=== PATIENT | female | born 1950 | race Caucasian/White ===

== ENCOUNTER 2024-05-30 14:18 | Outpatient (CLI) | payer MEDICARE, SELFPAY ==
--- NOTE | ~2024-05-30 | MM_ITS ---
EXAMINATION: MM screening shantel BI w renae HISTORY: Screening TECHNIQUE: Craniocaudal and mediolateral oblique 3-D tomosynthesis images were obtained and synthetic 2-D images were generated. CAD analysis was submitted and interpreted. COMPARISON: No prior mammogram is available for comparison at this institution. BREAST PARENCHYMAL COMPOSITION: There are scattered areas of fibroglandular density. FINDINGS: Punctate and bulky calcifications are detected bilaterally, morphologically benign in appea benton. Unremarkable parenchymal pattern without suspicious microcalcifications, architectural distortion, di screte masses or significant asymmetry. IMPRESSION: 1. No mammographic/tomographic evidence of malignancy. BI-RADS Category 0: Incomplete: Needs comparison with prior mammograms. Reviewed, dictated and finalized at location A.
--- OUTSIDE RECORDS SUMMARY | 2024-05-30 14:25 | XMS_ITS | Clinical Summary ---
Author Organization [facility] Address [address] [place] [address] Care Team Providers Care Mail Processor Name Role Phone Unavailable Primary Care Provider Unavailabl e Immunizations Immunization Administration Dates Next Due Covid-19, Mrna, Lnp-s, Pf, 30 Mcg/0.3 Ml Dose (P hiral) 12/31/2020 Social History Tobacco Use Types Packs/Day Years Used Date Smoking Tobacco: Never Assessed Comments Unknown Sex and Gender Information Value Date Recorded Sex Assigned at Not on file Legal Sex Female 12:25 AM CDT Gender Identity Not on file Sexual Orientation Not on file Plan of Treatment Health Maintenance Due Date Last Done Comments DEXA Bone Density 1950 Hepatitis C Virus (HCV) Screening 1950 TdaP Immunization 1950 Colonoscopy 07/31/1996 Colorectal Cancer Screening 07/31/1996 Cologuard 07/31/2001 Immunochemical Fecal Occult Blood 07/31/2001 Mammogram 07/31/2001 Zoster Immunization (1 of 2) 07/31/2001 Influenza Immunization (#1) 11/04/202311/03, 11/18/2018, 11/10/2017, Additional history exists SARS-COV-2 Immunization (2023- season) 2023 12/31/2020, 05/20/2020, 04/27/2020 Respiratory Syncytial Virus (RSV) Immunization (Adult) (1 - 1-dose 75+ series) 07/31/2026 Pneumococcal Immunization (50+ years) Completed 11/17/2019, 11/18/2018 Hepatitis B Immunization Aged Out No longer eligible based on patient's age to complete this topic Meningococcal Immunization (ACWY) Aged Out No longer eligible based on patient's age to complete this topic Rotavirus Immunization Aged Out No lo nger eligible based on patient's age to complete this topic
--- OUTSIDE RECORDS SUMMARY | 2024-05-30 14:25 | XMS_ITS | Clinical Summary ---
Author Organization [facility] [employer] Address [address] [place] [address] [place] [address] Care Team Providers Care Contract Manager Name Role Phone Unavailable Primary Care Provider Unavailabl e Source Comments [facility] [employer],non-owned Affiliates and Associated Physician Practices is amultiple site organization consisting of ambulatory clinics and hospital sitesin [place], [place], [place] and [place]. This disclosure is being madepursuant to the Care Everywhere program and may not contain all information available regarding this patient. Last updated 17.[facility] [employer] Allergies No known active allergies Medications * Be aware that medications may not be up to date on this document. Alwaysverify current medications with the patient. Medication Sig Dispensed Refills Start Date End Date Status pravastatin (PRAVACHOL) 40 MG tablet Take 20 mg by mouth at bedtime Active NIACIN, ANTIHYPERLIPIDEMIC, PO Take 250 mg by mouth once daily Active Multiple Vitamins-Minerals (MULTIVITAMIN ADULT PO) Take 1 tablet by mouth once daily Active oxyCODONE-acetaminoph en (PERCOCET) 5-325 MG tablet Take 2 tablets by mouth every 4 hours as needed for Pain 40 tablet 08/03/2017 Active Immunizations Name Administration Dates Next Due INFLUENZA VACCINE, HIGH-DOSE , QUADR. (FLUZONE HIGH-DOSE QUADRIVALENT; 65Y+), 0.7 ML ([id number]) 11/10/2017 Social History Tobacco Use Types Packs/Day Years Used Date Smoking Tobacco: Never Smokeless Tobacco: Never Alcohol Use Standard Drinks/Week Comments Yes 0 (1 standard drink = 0.6 oz pur e alcohol) socially Sex and Gender Information Value Date Recorded Sex Assigned at Not on file Gender Identity Not on file Sexual Orientation Not on file Last Filed Vital Signs Vital Sign Reading Time Taken Comments Blood Pressure 150/94 08/03/2017 1:50 PM CDT Pulse 78 08/03/2017 1:50 PM CDT Temperature 36.8 C (98.3 F) 08/03/2017 1:05 PM CDT Respiratory Rate 16 08/03/2017 1:50 PM CDT Oxygen Saturation 95% 08/03/2017 1:50 PM CDT Inhaled Oxygen Concentration - - Weight 95.3 kg (210 lb) 08/03/2017 9:33 AM CDT Height 165.1 cm (5' 5 ) 08/03/2017 9:33 AM CDT Body Mass Index 34.95 08/03/2017 9:33 AM CDT Plan of Treatment Health Maintenance Due Date Last Done Comments BONE DENSITY TESTING 1950 COLOGUARD (AGES 45-75) - COL ON CA SCREENING 1950 COLON MONITORING 1950 COLONOSCOPY - COLON CA SCREENING 1950 CT COLONOGRAPHY - COLON CA SCREENING 1950 Colorectal Cancer Screening 1950 FIT - COLON CA SCREENING 1950 FLEX SIG - COLON CA SCREENING 1950 MAMMOGRAM 1950 MEDICARE AWV 12 MONTHS 1950 HEPATITIS C SCREENING 07/27/1969 DTAP/TDAP/TD VACCINES (1 - Tdap) 07/31/1970 PNEUMOCOCCAL VACCINE 50+ (1 of 1 - PCV) 07/31/2001 ZOSTER VACCINE (1 of 2) 07/31/2001 SCREENING FOR DIABETES 11/10/2017 COVID-19 VACCINE (1 - 2023-2 5 season) 2023 INFLUENZA VACCINE (#1) 2023 11/10/2017 DEPRESSION SCREENING 03/05/2024 Respiratory Syncytial Virus (RSV) Vaccine Pt: or over 60 yrs (1 - 1-dose 75+ series) 07/31/2026 HEPATITIS B VACCINE Aged Out No longe r eligible based on patient's age to complete this topic HIB VACCINE Aged Out No longer eligi ble based on patient's age to complete this topic HPV VACCINE Aged Out No longer eligi ble based on patient's age to complete this topic MENINGOCOCCAL (Group B) VACC INE SHARED DECISION-MAKING Aged Out No longer eligibl e based on patient's age to complete this topic MENINGOCOCCAL GROUPS A/C/Y/W VACCINE Aged Out No longer eligible b ased on patient's age to complete this topic
--- OUTSIDE RECORDS SUMMARY | 2024-05-30 14:25 | XMS_ITS | Data Portability ---
Author Organization [facility] Address [address] [place] [address] Assessment Encounter Date Assessment Date Assessment LastModified by Organization Details LastModified Time 08/21/2023 08/21/2023 mammogram may 2023 normal cologuard september 2022 negative pap smear a few years ago and now done eye exam overdue for exam. she will get one this summer. dental exam: UTD always Not available 08/21/2023 13:03:59 02/21/2024 02/21/2024 mammogram may 2023 normal cologuard september 2022 negative pap smear a few years ago and now done eye exam still due. dental exam: UTD always , last month. Not available 02/21/2024 12:54:31 Plan of Treatment Reminders Order Date Submit Date Provider Last Modified By Organization Details Last Modified Time Details Appointments ANY 15 2024 10:00A M JESÚS Painter Not available Not available Not available Lab HbA1c (hemoglob in A1c), blood 2023 024 [facility], [address], [place], [address], 03/12/2024 10:34:08 BMP, serum or plasma 2023 024 [facility], [address], [place], [address], 03/12/2024 10:33:58 hepatic function panel, serum [facility]23 [facility], [address], [place], [address], 03/12/2024 10:34:16 CBC w/ auto diff 2023 024 [facility], [address], [place], [address], 03/12/2024 10:34:33 TSH + free T4, serum 2023 024 [facility], [address], [place], [address], 03/04/2024 10:34:09 lipid panel, serum 2023 024 [facility], [address], [place], [address], 03/12/2024 10:33:47 BMP, serum or plasma 2023 024 [facility], [address], [place], [address], 09/13/2023 15:37:04 hepatic function panel, serum 2023 024 [facility], [address], [place], [address], 09/13/2023 15:37:04 CBC w/ auto diff 2023 024 [facility], [address], [place], [address], 09/13/2023 15:37:03 TSH + free T4, serum 2023 024 [facility], [address], [place], [address], 09/13/2023 15:37:03 vitamin B12 + folate, serum or blood 2023 024 [facility], [address], [place], [address], 09/13/2023 15:37:03 HbA1c (hemoglob in A1c), blood 2023 024 [facility], [address], [place], [address], 09/13/2023 15:37:04 lipid panel, serum 2023 024 [facility], [address], [place], [address], 09/13/2023 15:37:04 Referral None recorded. Procedures None recorded. Surgeries None recorded. Imaging MAMMO, screening , digital, bilateral 2023 [facility], [address] Lissette Sharma, [facility], [place], [address], 03/25/2024 15:29:06 DEXA 2023 024 [facility] Not available 09/10/2023 16:13:27 Medication Orders ciproflox acin 0.3 %-dexamet hasone 0.1 % ear drops,genie pension 2023 024 [id number], [address] [place], [place], [phone], 02/21/2024 12:52:56 amoxicill in 875 mg-potass ium clavulana te 125 mg tablet 2023 024 [id number], [address] [facility], [place], [place], [phone], 02/21/2024 12:52:59 losartan 100 mg tablet 2023 024 [id number], [address] [facility], [place], [place], [phone], 02/21/2024 12:52:58 Patient TargetsNo targets recorded. Patient Instructions Encounter Date Encounter Id Patient Instructions Last Modified By Organization Details Last Modified Time 08/21/2023 [id number] A healthy lifestyle: care instructions Not available 08/21/2023 13:10:06 02/21/2024 [id number] A healthy lifestyle: care instructions Not available 02/21/2024 12:52:51 Reason for Referral None Reported. Results Created Date Observation Date Name Description Value Unit Range Abnormal Flag Note LastModifiedBy Organization Detail LastModifiedTime 08/21/19 24 08/29/2021 DEXA No observ ation record ed. [facility] Not Available 2023 15:20:29 08/21/19 24 04/03/2022 MAMMO , scree lissa, digit al, bilat eral No observ ation record ed. [facility] Not Available 2023 15:20:29 09/10/19 24 09/10/2023 DEXA No observ ation record ed. [facility] [address] [place], [address], 03/04/2024 16:59:08 03/06/19 25 04/03/2022 MAMMO , scree lissa, digit al, bilat eral No observ ation record ed. [facility] Not Available 2024 16:59:38 03/06/19 25 08/29/2021 DEXA No observ ation record ed. [facility] Not Available 2024 17:21:09 Result Notes None recorded. Problems Name Problem SNOMED Code Status Onset Date Resolution Date Notes Provider Name and Address Organization Details Recorded Time Long-term drug therapy Active 2023 JESÚS Painter Attn: Sandi warren,[address] [facility], [place], [address], [facility] 23:58:35 Body mass index 30+ - obesity 945110702 Active 2023 JESÚS Painter Attn: Sandi warren,[address] [facility], [place], [address], [place] [facility] 4 23:58:41 Obesity 505397383 Active 2023 JESÚS Painter Attn: Sanid g,[address] [facility], [place], [address], [place] [facility] 4 23:58:42 Blood glucose outside reference range 498539717 Active 2023 JESÚS Painter Attn: Sandi g,[address] [facility], [place], [address], [place] [facility] 4 23:58:44 Hyperlipidemia 28726978 Active 2023 JESÚS Painter Attn: Sandi g,[address] [facility], [place], [address], [place] [facility] 4 23:59:00 Benign essential hypertension 3605070 Active 2023 JESÚS Painter Attn: Sandi g,[address] [facility], [place], [address], [place] [facility] 4 23:59:03 Prediabetes 583502085 Active 2023 JESÚS Painter Attn: Sandi warren,[address] [facility], [place], [address], [place] [facility] 4 17:01:04 Problem Notes None recorded. Procedures Surgical History Date Name Laterality Status Provider Name and Address Organization Details Recorded Time 6 ligation of bilateral fallopian tubes completed JESÚS Painter Attn: Accounting,[address] [facility], [place], [address], [place] [facility] 02/24/2024 09:06:56 Imaging Results Imaging Date Name Status LastModified by [facility] Details LastModified Time 08/29/2021 DEXA completed [facility] Information no t available 08/21/2023 15:20:29 04/03/2022 MAMMO, screening, digital, bilateral completed [facility] Information not available 08/21/2023 15:20:29 09/10/2023 DEXA completed [facility] [address] [facility], [place], [address], 03/04/2024 16:59:08 04/03/2022 MAMMO, screening, digital, bilateral completed [facility] Information not available 03/06/2024 16:59:38 08/29/2021 DEXA completed [facility] Information no t available 03/06/2024 17:21:09 Procedure Notes None recorded. Medical Equipment None Reported. Allergies No known drug allergies Medications Name Sig Start Date Stop Date Status Note LastModified by Organization Details LastModified Time atorvastatin 20 mg tablet Take 1 tablet every day by oral route for 90 days. active Not Available Not Available No t Available losartan 100 mg tablet Take 1 tablet every day by oral route. active Not Available Not Available No t Available amoxicillin 875 mg-potassium clavulanate 125 mg tablet Take 1 tablet every 12 hours by oral route. active Not Available Not Available No t Available ciprofloxacin 0.3 %-dexamethason e 0.1 % ear drops,suspensi on INSTILL 4 DROPS INTO AFFECTED EAR(S) BY OTIC ROUTE 2 TIMES PER DAY FOR 7 DAYS 2023 active Not Available Not Available Not Avai lable Vitals Date Recorded Body height Body mass index (BMI) Body weight Respiratory rate Oxygen saturation Oxygen saturation in Arterial blood by Pulse oximetry Heart rate Systolic blood pressure Diastolic blood pressure Provider Name and Address Organization Details Last Updated DateTime 4 165.1 cm 34.9 kg/m2 68635.3 2 g 20 /min 96 % 96 % 73 /min 132 mm[Hg] 80 mm[Hg] Cristian Almonte MA [facility] 4 12:57:17 Date Recorded Systolic blood pressure Diastolic blood pressure Provider Name and Address Organization Details Last Updated DateTime 08/21/2023 130 mm[Hg] 78 mm[Hg] JESÚS Painter Attn: Accounting,[address] [place], [address], [place] [facility] 08/21/2023 13:09:54 Date Recorded Body height Body mass index (BMI) Body weight Oxygen saturation Oxygen saturation in Arterial blood by Pulse oximetry Heart rate Systolic blood pressure Diastolic blood pressure Provider Name and Address Organization Details Last Updated DateTime 165.1 cm 35.1 kg/m2 72160.9 9 g 96 % 96 % 73 /min 142 mm[Hg] 80 mm[Hg] Cristian Almonte MA [facility] 12:19:58 Date Recorded Respiratory rate Systolic blood pressure Diastolic blood pressure Provider Name and Address Organization Details Last Updated DateTime 02/21/2024 16 /min 136 mm[Hg] 80 mm[Hg] JESÚS Painter Attn: Accounting, [address] [facility], [place], [address], [facility] 03/04/2024 16:59:22 Social History Question Answer Notes LastModified by Organizat ion Details LastModified Time Tobacco Smoking Status Never Smoker Cristian Almonte MA null, [facility] 02/21/2024 12:17:49 Do You Have An Advance Directive? No Information not available 08/21/2023 What Is Your Level Of Alcohol Consumption? Occasional Information not available 08/21/2023 Are You Blind Or Do You Have Difficulty Seeing? No Contacts Information not available 08/21/2023 What Is Your Level Of Caffeine Consumption? Moderate Coffee Information not available 08/21/2023 In The 14 Days Before Symptom Onset, Have You Had Close Contact With A Laboratory-confi rmed COVID-19 While That Case Was Ill? No Information not available 08/21/2023 In The 14 Days Before Symptom Onset, Have You Had Close Contact With A Person Who Is Under Investigation For COVID-19 While That Person Was Ill? No Information not available 08/21/2023 Have You Been To An Area Known To Be High Risk For COVID-19? No Information not available 08/21/2023 Are You Deaf Or Do You Have Serious Difficulty Hearing? No Information not available 08/21/2023 What Type Of Diet Are You Following? REGULAR Pegsktarion Information not available 08/21/2023 Are There Any Guns Present In Your Home? No Information not available 08/21/2023 What Was The Date Of Your Most Recent Tobacco Screening? 02/21/2024 Information not available 02/21/2024 Do You Use Your Seat Belt Or Car Seat Routinely? Yes Information not available 08/21/2023 Do You Have Smoke And Carbon Monoxide Detectors In Your Home? Yes Information not available 08/21/2023 Do You Use Any Illicit Or Recreational Drugs? No Information not available 08/21/2023 Do You Use Sunscreen Routinely? Yes Sometimes Information not available 08/21/2023 Has Tobacco Cessation Counseling Been Provided? Yes Information not available 08/21/2023 On What Date Was Tobacco Cessation Counseling Provided? 02/22/2024 Information not available 02/21/2024 Do You Or Have You Ever Used Any Other Forms Of Tobacco Or Nicotine? No Information not available 02/21/2024 Sex: Female Functional Status Question Answer Note LastModified by Organization D etails LastModified Time Are you able to care for yourself? Yes Information n ot available 08/21/2023 What is your exercise level? None Information not available 08/21/2023 Mental Status None recorded. Family History Relationship Description Onset Age of this Age Resolved Age Notes LastModified by Organization Details LastModified Time Father Coronary arterioscler osis tcarterma Not available 2023 12:58:40 Father Heart disease tcarterma Not available 2023 12:58:52 Mother Dementia tcarterma Not availabl e 08/21/2023 12:58:45 Mother Heart disease tcarterma Not available 2023 12:58:52 Mother Hypertensive disorder tcarterma Not available 2023 12:58:57 Medical History Condition Response Coronary Artery Disease N Other N High Blood Pressure Y Atrial Fibrillation N Kidney or Bladder Problems N Thyroid Problems N GI Problems N Depression N COPD N Blood Clots N Skin Problems N Anemia N Heart Attack ([place]) N Anxiety Disorder N Diabetes N Muscle, Joint, or Bone Problems N Seizures/Epilepsy N Acid Reflux (GERD) N Cancer N Stroke N Asthma N Allergies Y High Cholesterol Y Hepatitis N Liver Disease N Headaches N Heart Failure N Osteoporosis N Gynecological History Statement/Question Response Menses Monthly N Current Control Method Other Obstetrics History GPAL:G 3 P 3 0 0 3 Type Value Full Term 3 Induced 0 Spontaneous 0 Premature 0 Living 3 Total 3 Immunizations Vaccine Type Date Status Note Provider Nam e and Address Organization Details Recorded Time Influenza, adjuvanted, trivalent, PF 9 completed JENS [place], [place] [facility] 02/21/2024 12:15:57 Influenza, adjuvanted, quadrivalent, PF 2 completed JENS [place] [facility] 02/21/2024 12:15:57 COVID-19, mRNA, LNP-S, PF, 30 mcg/0.3 mL dose 1 completed JENS [place] [facility] 02/21/2024 12:15:57 COVID-19, mRNA, LNP-S, PF, 30 mcg/0.3 mL dose 1 completed JENS [place] [facility] 02/21/2024 12:15:57 COVID-19, mRNA, LNP-S, PF, 30 mcg/0.3 mL dose 1 completed JENS [place] [facility] 02/21/2024 12:15:57 COVID-19, mRNA, LNP-S, PF, 30 mcg/0.3 mL dose, tolu-sucrose 2 completed JENS [place] [facility] 02/21/2024 12:15:57 COVID-19, mRNA, LNP-S, bivalent, PF, 30 mcg/0.3 mL dose 2 completed JENS [place] [facility] 02/21/2024 12:15:57 pneumococcal polysaccharide PPV23 0 [place] JENS [place] [facility] 02/21/2024 12:15:57 Pneumococcal conjugate PCV 13 9 completed JENS [place] [facility] 02/21/2024 12:15:57 zoster live 3 completed JENS Rivera, [place] [facility] 02/21/2024 12:15:57 Influenza, high-dose, trivalent, PF 8 completed Cristian Almonte MA null, [place] [facility] 02/21/2024 12:15:57 Influenza, high-dose, trivalent, PF 7 completed JENS Rivera, [place] 02/21/2024 12:15:57 influenza, split (incl. purified surface antigen) 3 completed JENS Rivera, [place] [facility] 02/21/2024 12:15:57 Influenza, split virus, quadrivalent, PF 0 completed JENS Rivera[place] 02/21/2024 12:15:57 Influenza, MDCK, trivalent, PF 5 completed JENS Rivera, [place] 02/21/2024 12:15:57 SARS-COV-2 (COVID-19) vaccine, UNSPECIFIED 4 completed JESÚS Painter Attn: Accounting,[address] [place], [address], [facility] 02/24/2024 09:07:38 Past Encounters Encounter ID Performer Location Encounter Start Date Encounter Closed Date Diagnosis/Indication Diagnosis SNOMED-CT Code Diagnosis ICD10 Code Diagnosis Note [id number] JESÚS Painter [facility] [place] [address] [place] [address] 08/21/2023 12:20:02 08/21/2023 14:41:33 Body mass index 30+ - obesity 609216558 Z68.34 discussed healthy diet, exercise, controllin g carbohydra ludwin and added sugars in the diet Obesity 391361678 E66.8 Hyperlipidemia 98916046 E78.5 Patient is stable on atorvastat in 10 mg daily and due for fasting labs Benign ess ential hypertension 9457630 I10 Blood pressure is 130/78 and stable on losartan 50 mg daily Long-term drug therapy 604869961 Z79.899 Full lab panel ordered including BMP, LFT, CBC, thyroid panel, B12 and folate Blood gluc ose outside reference range 478389350 R73.09 History of impaired glucose tolerance with A1c lab due Screening for osteoporosis 389142082 Z13.820 Patient is postmenopa usal and due for screening DEXA scan [id number] JESÚS Painter [facility] [address] [place] [address] 02/21/2024 11:56:00 03/06/2024 09:07:35 Benign essential hypertension 1444193 I10 on losartan 100mg daily. Refill on losartan given blood pressure is borderline we have encouraged the patient to monitor home blood pressure as well as watch sodium and caffeine in the diet. Hyperlipidemia 51226357 E78.5 Patient is stable on atorvastat in 10 mg daily and due for fasting labs Body mass index 30+ - obesity 949317258 Z68.34 BMI is 35.1. Discussed healthy diet, exercise, controllin g carbohydra ludwin and added sugars in the diet Obesity 521394497 E66.9 Long-term drug therapy 134513327 Z79.899 Full lab panel ordered including BMP, LFT, CBC, thyroid panel, B12 and folate Screening mammography 24 864141 Z12.31 Mammogram ordered for spring Acute supp urative otitis media 381833295 H66.009 Start Augmentin course as directed for right-side d acute otitis media Otitis externa 3739176 H 60.91 Start Ciprodex eardrops to the right ear for right-side d otitis externa Prediabetes 669213564 R7 3.03 6.3%. on last labs. Due for updated A1c Health Concerns Section Related Observation LastModified by Organization Detai ls LastModified Time None Recorded Concern Status LastModified by Organization Details LastModified Time None Recorded Advance Directives Directive N: Payers Encounter Date Sequence Insurance Name Policy Number Policy Berry Covered Member ID Berry Member ID Guarantor Name 08/21/2023 1 [place] Germania Fraga [id number] 1 Germania Fraga 08/21/2023 2 [place] [id number] Germania Fraga [id number] Germania Fraga 02/21/2024 2 [place] [id number] Germania Fraga [id number] Germania Fraga 02/21/2024 [place] [facility] Germania Fraga [id number] 1 Germania Fraga Notes Date Note Type Note Provider Name and Address Organization Details Recorded Time 4 text/html HyperlipidemiaReported bypatient.Notes:Patient is currently taking atorvastatin 20 mg, half a tablet daily. Due for updated fasting lipid panel.HypertensionReported bypatient.Notes:Patient is currently taking losartan 100 mg, half a tablet daily. Patient has history of impaired glucose tolerance, diet controlled and due for updated labs JESÚS Painter Attn: Accounting,[address] [facility], [place], [address], [facility] 09/07/2023 23:59:47 4 text/html HyperlipidemiaReported bypatient.Notes:Patient is currently taking atorvastatin 20 mg, half a tablet daily. Due for updated fasting lipid panel.HypertensionReported bypatient.Notes:Patient is currently taking losartan 100 mg, half a tablet daily. Patient has history of impaired glucose tolerance, diet controlled and due for updated labs JESÚS Painter Attn: Accounting,[address] [facility], [place], [address], [facility] 03/04/2024 17:01:58 OBGyn Episode No OBEpisode recorded.
== END 2024-05-30 14:19 | disposition home or self-care (01) ==
LOC: ANHIMG 14:19
PROVIDERS: PCP Physician Assistant; Visit Provider Physician Assistant
DX: Z12.31 Encounter for screening mammogram for malignant neoplasm of breast (principal)
CPT/HCPCS: 77063; 77067

== ENCOUNTER 2024-09-09 12:23 | Outpatient (CLI) | payer MEDICARE, SELFPAY ==
--- NOTE | ~2024-09-09 | XR_ITS ---
XR shoulder RT min 2V, XR humerus RT 09/09/2024 12:55 Indication: Right arm pain Procedure: 4 views right shoulder and 2 views right humerus Comparison: No prior studies for comparison. 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 Osteopenia. No fracture, sublux ation or dislocation. No focal lytic or blastic lesions. No soft tissue abnormality. No foreign lainey s. Impression: 1: No acute bone or joint abnormality Reviewed, dictated and finalized at location A. Impression: 1: No acute bone or joint abnormality Impression: 1: No acute bone or joint abnormality
--- NOTE | ~2024-09-09 | XR_ITS ---
[id number] Ordering provider: Jes Hawkins, PA-C History: . Radiculopathy cerical region . Comparison: None. FINDINGS: VERTEBRAL BODIES: Reversal of lordosis with kyphosis centered at the level of C3-C4. Minimal retrolis thesis at the level of C4-C5. Normal height.. No visible fracture. The dens is intact. Degenerative c hanges of the spine. DISK SPACES: Narrowing of the disc C4-C5 and C5-C6. Multilevel facet joint disease. Multilevel uncove rtebral joint osteoarthritic changes. PARASPINOUS SOFT TISSUES: No prevertebral soft tissue swelling. IMPRESSION: No acute osseous abnormality cervical spine. Retrolisthesis at the level of C4-C5. Multilevel degenerative disc disease. Reviewed, dictated and finalized at location A.
== END 2024-09-09 12:24 | disposition home or self-care (01) ==
LOC: MICIMG 12:25
PROVIDERS: PCP Physician Assistant; Visit Provider Physician Assistant
DX: M79.601 Pain in right arm (principal); M54.12 Radiculopathy, cervical region; M50.30 Other cervical disc degeneration, unspecified cervical region
CPT/HCPCS: 72040; 73030; 73060